=== PATIENT | female | born 1980 | race African-American/Black ===

== ENCOUNTER 2016-12-17 21:53 | Emergency (ER) | payer OTHER ==
[~2016-12-17] VITALS: Ht 167.6 cm; Wt 59.9 kg
[~2016-12-17 21:53] MED LIST: AZIT250T94 PO; PNV1TABL12 PO; PRED20TA PO; UDROBDM PO
[2016-12-17 21:56] VITALS: Ht 167.6 cm; Wt 59.9 kg
[2016-12-17] MEDS ORDERED: SOD CHLORIDE 0.9% 1,000 ML IV STA (22:24)
--- NOTE | 2016-12-17 23:09 | RADRPT ---
PROCEDURE: OB Ultrasound. CLINICAL INDICATION: Positive test. Vaginal bleeding. TECHNIQUE: Ultrasound of the pelvis was performed with transabdominal sonography in the axial and sagittal planes. COMPARISON: No prior study is available for comparison. FINDINGS: There is a single intrauterine gestational sac. pole and yolk sac are present. There is heart motion. heart rate is 166 beats per minute. [place]-rump length is 5.21 cm. Mean sac diameter is 5.38 cm. There is a large subchorionic hemorrhage. Menstrual age by ultrasound dates is 12 weeks 0 days. This indicates an expected date of delivery of 07/01/2017. The ovaries are not visualized. There is no other pelvic mass or free fluid. IMPRESSION: 1. Single live intrauterine gestation of 12 weeks 0 days menstrual age by ultrasound dates. 2. Expected date of delivery is 07/01/2017. 3. Large subchorionic hemorrhage. RPTAT: QQ .Rajiv Moreno MD, MD Date Time Electronically viewed and signed by .Rajiv Moreno MD, on 12/17/2016 23:09 .R/
--- NOTE | 2016-12-17 23:27 | ERD ---
ER Documentation Chief Complaint Date/Time DATE: 12/17/16 TIME: 23:13 Chief Complaint 11 weeks , vaginal bleeding 3 hours ago ([facility] PA-C) HPI Patient is a 36-year-old female who is A1 who presents to the ED with vaginal bleeding that started 3 hours ago. Her LNMP was 10/02/2017. She states that is passing tissue. She states that she has been using 4 pads in the last 2 hours. She complains of pelvic pain. She denies fever, chills, nausea, vomiting or abdominal pain. She denies chest pain, cough, shortness of breath or difficulty breathing. She denies leg pain or swelling. She denies headache or dizziness. ([facility] PA-C) ROS All systems reviewed and are negative except as per history of present illness. ([facility] PA-C) Medications Home Meds Active Scripts Pnv Cmb#21/Iron/Folic Acid ( Complete Caplet) 1 Each Tablet, 1 EACH PO DAILY, #30 TAB Prov:DOMINIQUE GONZALEZ PA-C 11/10/16 Guaifenesin-Dextromethorphan* (Robitussin* DM) 100MG/10MG/5ML Syrup, 10 ML PO Q4H Y for COUGH for 5 Days, ML Prov:BRIONNA MCCORMICK NP 01/10/16 Azithromycin* (Zithromax*) 250 Mg Tablet, 250 MG PO .ZPACK DIRECTED, #6 TAB TAKE 500 MG (2 TABS) THE FIRST DAY THEN 250 MG (1 TAB) DAYS 2-5 Prov:BRIONNA MCCORMICK NP 01/10/16 Prednisone* (Prednisone*) 20 Mg Tab, 40 MG PO DAILY for 4 Days, TAB Prov:BRIONNA MCCORMICK NP 01/10/16 Allergies Allergies: Coded Allergies: acetaminophen (Verified Allergy, Mild, Itching, rash, 11/10/16) dextromethorphan (Verified Allergy, Mild, Itching, rash, 11/10/16) doxylamine (Verified Allergy, Mild, Itching, rash, 11/10/16) pseudoephedrine (Verified Allergy, Mild, Itching, rash, 11/10/16) diphenhydramine (Verified Adverse Reaction, Mild, Itching, rash, 11/10/16) PMhx/Soc Medical and Surgical Hx: pt denies Medical Hx, pt denies Surgical Hx History of Surgery: Yes (c section ) Anesthesia Reaction: No Hx Neurological Disorder: No Hx Respiratory Disorders: No Hx Cardiac Disorders: No Hx Psychiatric Problems: No Hx Miscellaneous Medical Probl: No Hx Alcohol Use: No Hx Substance Use: No Hx Tobacco Use: No Smoking Status: Never smoker ([facility] PA-C) Physical Exam Vitals Vital Signs Date Time Temp Pulse Resp B/P Pulse Ox O2 Delivery O2 Flow Rate FiO2 12/17/16 21:56 98.0 75 20 116/60 100 (DOMINIQUE GONZALEZ PA-C) Physical Exam GENERAL: Well-developed, well-nourished female. Appears in mild distress. HEAD: Normocephalic, atraumatic. NECK: Supple. No lymphadenopathy or thyromegaly. No meningismus. negative kernig. negative brudinski. LUNG: Clear to auscultation bilaterally. No rhonchi, wheezing, rales or coarse breath sounds. HEART: Regular rate and rhythm. No murmurs, rubs or gallops. ABDOMEN: No scars, ecchymosis or rashes noted. Soft, nontender, and nondistended. Positive bowel sounds in all four quadrants. No rebound tenderness , no guarding. (-) McBurneys point tenderness. No CVA tenderness. BACK: No midline tenderness. Extremities: Equal pulses bilaterally. No peripheral clubbing, cyanosis or edema. No unilateral leg swelling. NEUROLOGIC: Alert and oriented. Moving all four extremities. 5/5 strength in all extremities. Normal speech. Steady gait. SKIN: Normal color. Warm and dry. No rashes or lesions. Capillary refill < 2 seconds ([facility] PA-C) Result Diagram: 12/17/16 2300 12/17/16 2300 Results 24 hrs Laboratory Tests Test 12/17/16 23:00 Activated Partial Thromboplast Time 26.4Sec Anion Gap 16 Basophils # 0.010^3/ul Basophils % 0.2% Beta HCG, Quantitative 641990.0mIU/ml Blood Morphology Comment Blood Urea Nitrogen 12mg/dl Calcium Level 9.3mg/dl Carbon Dioxide Level 25mmol/L Chloride Level 101mmol/L Creatinine 0.59mg/dl Eosinophils # 0.110^3/ul Eosinophils % 1.3% Glucose Level 98mg/dl Hematocrit 35.5% Hemoglobin 11.8g/dl INR International Normalized Ratio 0.97 Lymphocytes # 2.010^3/ul Lymphocytes % 25.1% Mean Corpuscular Hemoglobin 28.7pg Mean Corpuscular Hemoglobin Concent 33.2g/dl Mean Corpuscular Volume 86.4fl Mean Platelet Volume 8.6fl Monocytes # 0.810^3/ul Monocytes % 10.1% Neutrophils # 5.110^3/ul Neutrophils % 63.3% Nucleated Red Blood Cells # 0.010^3/ul Nucleated Red Blood Cells % 0.0/100WBC Platelet Count 10578^3/UL Potassium Level 3.9mmol/L Prothrombin Time 12.9Sec Prothrombin Time Ratio 1.0 Red Blood Count 4.1110^6/ul Red Cell Distribution Width 13.4% Sodium Level 138mmol/L Urine Bacteria FEW Urine Bilirubin NEGATIVE Urine Clarity CLEAR Urine Color LT. YELLOW Urine Glucose NEGATIVE% Urine Hemoglobin 3+ Urine Ketones NEGATIVE Urine Leukocyte Esterase NEGATIVE Urine Microscopic RBC >50/HPF Urine Microscopic WBC 0-2/HPF Urine Nitrite NEGATIVE Urine Specific [place] 1.010 Urine Squamous Epithelial Cells FEW Urine Total Protein NEGATIVE Urine Urobilinogen 0.2 E.U./dL Urine pH 7.0 White Blood Count 8.110^3/ul Current Medications Medications (Trade) Dose Ordered Sig/Monica Route PRN Reason Start Time Stop Time Status Last Admin Dose Admin Sodium Chloride (NS) 1,000 ml @ 1,000 mls/hr Q1H STAT IV 12/17/16 22:24 12/17/16 23:23 DC 12/17/16 22:24 (DOMINIQUE GONZALEZ PA-C) Procedures/MDM ER COURSE: I kept the patient and/or family informed of laboratory and diagnostic imaging results throughout the emergency room course. EKG, MONITORS, & DIAGNOSTIC IMAGING: [place] [id number] Radiology Main Line: [phone] DIAGNOSTIC IMAGING REPORT Patient: JOANA BLACKWOOD : 1980 Age: 36 Sex: F MR #: [id number] DOS: 12/17/16 2224 Ordering MD: [facility] PA-C Location: [facility] Room/Bed: PROCEDURE: OB Ultrasound. CLINICAL INDICATION: Positive test. Vaginal bleeding. TECHNIQUE: Ultrasound of the pelvis was performed with transabdominal sonography in the axial and sagittal planes. COMPARISON: No prior study is available for comparison. FINDINGS: There is a single intrauterine gestational sac. pole and yolk sac are present. There is heart motion. heart rate is 166 beats per minute. [place]-rump length is 5.21 cm. Mean sac diameter is 5.38 cm. There is a large subchorionic hemorrhage. Menstrual age by ultrasound dates is 12 weeks 0 days. This indicates an expected date of delivery of 07/01/2017. The ovaries are not visualized. There is no other pelvic mass or free fluid. IMPRESSION: 1. Single live intrauterine gestation of 12 weeks 0 days menstrual age by ultrasound dates. 2. Expected date of delivery is 07/01/2017. 3. Large subchorionic hemorrhage. RPTAT: QQ .Rajiv Moreno MD, Date Time Electronically viewed and signed by .Rajiv Moreno MD, MD on 12/17/2016 23:09 .R/ CC: [facility] PA-C LAB INTERPRETATION: CBC showed no evidence of systemic infection or severe anemia. BMP showed no evidence of electrolyte abnormalities, severe acidosis. UA showed no evidence of acute infection or hematuria. RH: O+ BHCG: pending MEDICAL DECISION MAKING: This is a 36-year-old female who is A1 who presents with vaginal bleeding 3 hour. Vital signs were reviewed. Patient is afebrile. Patient is not hypoxic.. Pulse 75, blood pressure 116/60. Patient likely has a threatened . Low suspicion for ovarian torsion, PID, tuboovarian abscess, ectopic , bowel obstruction, pyelonephritis,appendicitis, UTI, nephroliathisis , septic stone, obstructed stone. Low suspicion for ectopic , , molar , endometriosis, PID, placenta previa, placenta abruptia, preeclampsia, eclampsia, anemia, endometritis, cervicitis. Her hemoglobin of 11.8 does not need tranfusion or admission at this time. Patient to continue with iron supplements. Patient will be handed to Dominique Gonzalez PA-C pending [facility] [place]. Patient is stable. ([facility] PA-C) Patient was signed out to me, single live IUP of 12 weeks was seen on ultrasound today. Beta quantitative is appropriate, ER return precautions were given, she is to follow-up with her OB as directed in 2 days. (DOMINIQUE GONZALEZ PA-C) Departure Diagnosis: Primary Impression: Vaginal bleeding in patient at less than 20 weeks gestation Condition: Stable [facility] PA-C Dec 17, 2016 23:26 DOMINIQUE GONZALEZ PA-C Dec 18, 2016 01:07
[2016-12-17 23:40] LABS: BASOPHILS % 0.2 % (0.0-2.0); EOSINOPHILS # 0.1 10^3/ul (0.0-0.5); EOSINOPHILS % 1.3 % (0.0-7.0); HEMATOCRIT 35.5 % (37.0-47.0); HEMOGLOBIN 11.8 g/dl (12.0-16.0); LYMPHOCYTES % 25.1 % (15.0-51.0); MEAN CORPUSCULAR HEMOGLOBIN 28.7 pg (29.0-33.0); MEAN CORPUSCULAR HGB CONC 33.2 g/dl (32.0-37.0); MEAN CORPUSCULAR VOLUME 86.4 fl (82.0-101.0); MEAN PLATELET VOLUME 8.6 fl (7.4-10.4); MONOCYTE # 0.8 10^3/ul (0.3-0.9); MONOCYTES % 10.1 % (0.0-11.0); NEUTROPHIL # 5.1 10^3/ul (1.6-7.5); NEUTROPHILS % 63.3 % (39.0-77.0); PLATELET COUNT 190 10^3/UL (140-440); RED BLOOD COUNT 4.11 10^6/ul (4.20-5.40); RED CELL DISTRIBUTION WIDTH 13.4 % (11.5-14.5); UNCORRECTED WBC 8.1 10^3/ul (4.8-10.8); WHITE BLOOD COUNT 8.1 10^3/ul (4.8-10.8)
[2016-12-17 23:46] LABS: CONDITION 1
[2016-12-17 23:49] LABS: INR 0.97; PROTIME 12.9 Sec (12.2-14.2)
[2016-12-17 23:50] LABS: PARTIAL THROMBOPLASTIN TIME 26.4 Sec (25.0-35.0)
[2016-12-17 23:53] LABS: POTASSIUM 3.9 mmol/L (3.5-5.1)
[2016-12-17 23:54] LABS: ADD UMIC YES; URINE BILIRUBIN (Dip) NEGATIVE (NEGATIVE); URINE BLOOD (Dip) 3+ (NEGATIVE); URINE COLOR LT. YELLOW (YELLOW); URINE GLUCOSE (Dip) NEGATIVE (NEGATIVE); URINE KETONES (Dip) NEGATIVE (NEGATIVE); URINE LEUKOCYTE ESTERASE (Dip) NEGATIVE (NEGATIVE); URINE NITRITE (Dip) NEGATIVE (NEGATIVE); URINE TOTAL PROTEIN (Dip) NEGATIVE (NEGATIVE); URINE UROBILINOGEN (Dip) 0.2 E.U./dL (0.1-1.0)
[2016-12-17 23:55] LABS: CREATININE 0.59 mg/dl (0.44-1.00)
[2016-12-17 23:57] LABS: CALCIUM 9.3 mg/dl (8.4-10.2)
[2016-12-18 01:03] LABS: BACTERIA,URINE FEW; SQUAMOUS EPITHELIAL CELL,UR FEW; URINE RBCS >50 /HPF (0)
[2016-12-18 01:37] VITALS: BP 106/71; PULSE 71; RESP 18; TEMP 98.6
== END 2016-12-18 01:37 | disposition home or self-care (01) ==
LOC: FTE 21:53
DX: O20.9 Hemorrhage in early pregnancy, unspecified (principal); R10.2 Pelvic and perineal pain; Z3A.12 12 weeks gestation of pregnancy
CPT/HCPCS: 36415; 76801; 80048; 81001; 84702; 85025; 85610; 85730; 86900; 86901; J7030; Z7502; 81003